=== PATIENT | female | born 1950 | race Caucasian/White ===

== ENCOUNTER → 2018-07-18 14:14 | Outpatient (CLI) | payer MEDICARE, BC, SELFPAY ==
--- NOTE | 2018-07-18 14:32 | US_ITS ---
US extremity LT limited HISTORY: ITS.REASON: LEFT LEG PAIN,LT LEG SWELLING: Palpable knot of left upper leg ORDERING PHYSICIAN: Chalo Jaffe MD PATIENT AGE: 67 years COMPARISON: None FINDINGS: There is a 17 x 8 x 18 mm area of subcutaneous isoechogenicity with some heterogeneity corresponding to the palpable abnormality and may represent a lipoma. No cystic lesion. A second palpable area in the upper thigh measures 6 mm and somewhat more hyperechoic and may also represent a lipoma only demonstrated in the sagittal plane. IMPRESSION: Probable lipomas of the left thigh
== END ==
PROVIDERS: PCP Family Medicine; Visit Provider Family Medicine
DX: M79.605 Pain in left leg (principal); M79.89 Other specified soft tissue disorders
CPT/HCPCS: 76882

== ENCOUNTER → 2019-01-04 10:18 | Outpatient (CLI) | payer MEDICARE, BC, SELFPAY | PROVIDERS: PCP Family Medicine; Visit Provider Family Medicine | DX: I10 Essential (primary) hypertension (principal) | CPT/HCPCS: 93225; 93226 ==

== ENCOUNTER → 2021-03-19 15:31 | Outpatient (CLI) | payer MEDICARE, BC, SELFPAY ==
--- NOTE | 2021-03-19 15:37 | XR_ITS ---
PROCEDURE: XR ABDOMEN MIN 2V CLINICAL INDICATION: RT FLANK PAIN, EPIGASTRIC ABD PAIN COMPARISON: No exams were available for comparison FINDINGS: Surgical clips from prior cholecystectomy. There are numerous pelvic calcifications which may be due to phleboliths. Bowel gas pattern is nonspecific. No obvious renal or ureteral calculi. IMPRESSION: No acute findings. Dictated by: Isaiah Amaya MD 03/19/2021 16:20 Isaiah Amaya MD in [facility] 03/19/2021 16:20
== END ==
PROVIDERS: PCP Family Medicine; Visit Provider Family Medicine
DX: R10.13 Epigastric pain (principal); R10.9 Unspecified abdominal pain
CPT/HCPCS: 74019

== ENCOUNTER → 2021-03-26 15:13 | Outpatient (CLI) | payer MEDICARE, BC, SELFPAY ==
--- NOTE | 2021-03-26 15:19 | CT_ITS ---
PROCEDURE: CT ABDOMEN PELVIS WO CON CLINICAL INDICATION: RT FLANK PAIN,HEMATURIA COMPARISON: No exams were available for comparison TECHNIQUE: Axial images obtained with sagittal and coronal reformats. All CT scans at the facility use one or more dose reduction, viz: automated exposure control, ma/kV adjustment per patient size (including targeted exams where dose is matched to indication, i.e. head), or iterative reconstruction technique. FINDINGS: LOWER THORAX: No acute finding ABDOMEN & PELVIS: There has been a prior cholecystectomy. The liver, spleen, adrenal glands, pancreas, have an unremarkable appearance. There are small bilateral renal cysts. No renal or ureteral calculi. No hydronephrosis. No intestinal obstruction or free air. No evidence of appendicitis. There is a small ventral abdominal wall hernia 10 cm below the level of the umbilicus containing fat slightly to the of central. There are few colonic diverticula. No evidence of diverticulitis. No pelvic mass or abnormal fluid collection. There has been prior hysterectomy with some calcification noted in the vaginal cuff on both sides. There is degenerative disc disease in the lumbar spine with severe left-sided foraminal narrowing at L5-S1 IMPRESSION: No acute finding. No renal or ureteral calculi. There are small bilateral renal and parapelvic renal cysts Small ventral infraumbilical abdominal wall hernia containing fat Dictated by: Isaiah Amaya MD 03/26/2021 16:52 Isaiah Amaya MD in [facility] 03/26/2021 16:52
== END ==
PROVIDERS: PCP Family Medicine; Visit Provider Family Medicine
DX: R10.9 Unspecified abdominal pain (principal); R31.29 Other microscopic hematuria
CPT/HCPCS: 74176

== ENCOUNTER → 2022-02-17 15:09 | Outpatient (CLI) | payer MEDICARE, BC, SELFPAY ==
--- NOTE | 2022-02-17 15:13 | MM_ITS ---
PROCEDURE INFORMATION: Exam: MG Bilateral Screening 3D Mammography Exam date and time: 02/17/2022 3:10 PM Age: 71 years old Clinical indication: Screening examination TECHNIQUE: Imaging protocol: Bilateral Screening tomosynthesis and 2D mammography including computer-aided detection (CAD) when performed. COMPARISON: 1. MG DMSB DIG MAMM-SCREEN TRAY 12/09/2014 9:23 AM 2. MG DIGMAMMDX MAMMOGRAM DX-DESKTOP TECHNICIAN N/C 04/17/2006 10:04 AM 3. MG DIGMAMMDX MAMMOGRAM DX-DESKTOP TECHNICIAN N/C 04/06/2005 10:14 AM FINDINGS: MAMMOGRAPHY: Breast composition: There are scattered areas of fibroglandular density. Mass: No suspicious masses. Architectural distortion: No suspicious distortion. Calcifications: No suspicious calcifications. Asymmetric density: None. Skin thickening: None. Axillary adenopathy: None. IMPRESSION: No mammographic evidence of malignancy. Annual screening is recommended unless otherwise clinically indicated. ASSESSMENT: BI-RADS Category 1: Negative
== END ==
PROVIDERS: PCP Family Medicine; Visit Provider Family Medicine
DX: Z12.31 Encounter for screening mammogram for malignant neoplasm of breast (principal)
CPT/HCPCS: 77063; 77067

== ENCOUNTER 2024-06-24 15:34 | Outpatient (CLI) | payer MEDICARE, BC, SELFPAY ==
--- NOTE | 2024-06-24 15:36 | MM_ITS ---
PROCEDURE INFORMATION: Exam: MG Bilateral Screening 3D Mammography Exam date and time: 06/24/2024 3:25 PM Age: 73 years old Clinical indication: Screening examination TECHNIQUE: Imaging protocol: Bilateral Screening tomosynthesis and 2D mammography including computer-aided detection (CAD) when performed. COMPARISON: MG MM DIG SCREENING MAMM BI W/CAD 02/17/2022 3:13 PM FINDINGS: MAMMOGRAPHY: Breast composition: There are scattered areas of fibroglandular density. Mass: None. Architectural distortion: None. Calcifications: No suspicious calcifications. Asymmetric density: None. Skin thickening: None. Axillary adenopathy: None. IMPRESSION: No mammographic evidence of malignancy. Annual screening is recommended unless otherwise clinically indicated. ASSESSMENT: BI-RADS Category 1: Negative.
== END 2024-06-24 23:59 | disposition home or self-care (01) ==
LOC: RAD 15:34
PROVIDERS: PCP Family Medicine; Visit Provider Family Medicine
DX: Z12.31 Encounter for screening mammogram for malignant neoplasm of breast (principal)
CPT/HCPCS: 77063; 77067

== ENCOUNTER 2024-11-16 09:11 | Outpatient (CLI) | payer MEDICARE, BC, SELFPAY ==
--- NOTE | 2024-11-16 09:18 | XR_ITS ---
PROCEDURE INFORMATION: Exam: XR Left Foot Exam date and time: 11/16/2024 9:09 AM Age: 74 years old Clinical indication: Pain; Limp and swelling, leg or foot; Left TECHNIQUE: Imaging protocol: Radiologic exam of the left foot. Views: 3 or more views. COMPARISON: US - EXTLL US extremity LT limited 07/18/2018 2:37 PM FINDINGS: Bones/joints: No visible fracture or dislocation. Calcaneal spur noted. Soft tissues: Normal. IMPRESSION: No visible fracture or dislocation.
== END 2024-11-16 23:59 | disposition home or self-care (01) ==
LOC: RAD 09:12
PROVIDERS: PCP Family Medicine; Visit Provider Family Medicine
DX: M77.32 Calcaneal spur, left foot (principal)
CPT/HCPCS: 73630